=== PATIENT | female | born 1995 | race African-American/Black ===

== ENCOUNTER 2020-12-06 13:28 | Outpatient (REF) | payer OTHER, SELFPAY ==
[2020-12-07 12:53] LABS: CT PCR NOT DETECTED (Not Detect.); NG PCR NOT DETECTED (Not Detect.)
== END 2020-12-06 13:29 | disposition home or self-care (01) ==
LOC: HO.LAB 13:28
PROVIDERS: PCP Pediatrics; Visit Provider Advanced Practice Midwife
DX: Z01.419 Encounter for gynecological examination (general) (routine) without abnormal findings (principal); N92.6 Irregular menstruation, unspecified; L70.9 Acne, unspecified; Z20.2 Contact with and (suspected) exposure to infections with a predominantly sexual mode of transmission
CPT/HCPCS: 87491; 87591; 88142

== ENCOUNTER 2020-12-06 14:37 | Outpatient (REF) | payer OTHER, SELFPAY ==
[2020-12-07 09:46] LABS: Prolactin 6.8 ng/mL
[2020-12-09 19:16] LABS: DHEA Sulfate 293 mcg/dL (18-391)
[2020-12-11 11:21] LABS: Testosterone, Free 4.4 pg/mL (0.1-6.4); Testosterone, Total 64 ng/dL (2-45)
== END 2020-12-06 14:38 | disposition home or self-care (01) ==
LOC: HO.LAB 14:37
PROVIDERS: Visit Provider Advanced Practice Midwife
DX: Z01.419 Encounter for gynecological examination (general) (routine) without abnormal findings (principal); N92.6 Irregular menstruation, unspecified; L70.9 Acne, unspecified; Z20.2 Contact with and (suspected) exposure to infections with a predominantly sexual mode of transmission
CPT/HCPCS: 36415; 82627; 83498; 84146; 84402; 84403; 84443

== ENCOUNTER → 2020-12-19 09:05 | Outpatient (BNVA) | payer OTHER, SELFPAY | PROVIDERS: PCP Pediatrics; Visit Provider Advanced Practice Midwife ==

== ENCOUNTER 2021-01-29 08:41 | Emergency (ER) | payer OTHER, SELFPAY ==
[2021-01-29 09:07] VITALS: BP 107/57; PULSE 62; RESP 16; TEMP 36.6; O2SAT 100; BMI 19.9
--- NOTE | 2021-01-29 09:14 | ED_ITS ---
HPI - General Adult General Chief complaint: General Medical <MAGDA Rodriguez Last Filed: 01/29/21 09:22> Stated complaint: sore throat <MAGDA Rodriguez Last Filed: 01/29/21 09:22> Time Seen by Provider: 01/29/21 09:02 <MAGDA Rodriguez Last Filed: 01/29/21 09:22> Source: patient <MAGDA Rodriguez Last Filed: 01/29/21 09:22> Mode of arrival: ambulatory <MAGDA Rodriguez Last Filed: 01/29/21 09:22> History of Present Illness HPI narrative: 25-year-old female with a past medical history of irregular menses presenting to the ED complaining of sore throat, nasal congestion, dry cough, subjective fever, and mild chest discomfort when coughing since yesterday. Reports pain when swallowing. 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 Admits tested negative for COVID-19 a week ago. Denies ear pain, discharge, inability to swallow, difficulty swallowing, SOB, abdominal pain, LE edema, calf pain, recent travel <MAGDA Rodriguez Last Filed: 01/29/21 09:22> Onset (ago): day(s) <MAGDA Rodriguez Last Filed: 01/29/21 09:22> Related Data Home medications: Previous Rx's Medication Instructions Recorded metronidazole 500 mg tablet 2,000 mg PO ONCE 1 Days #4 tab 12/10/20 vitamin with calcium 1 tab PO DAILY #30 tab 12/19/20 no.72-iron 27 mg-folic acid 1 mg tablet <MAGDA Rodriguez Last Filed: 01/29/21 09:22> Allergies/adverse reactions: Allergies Allergy/AdvReac Type Severity Reaction Status Date / Time No Known Allergies Allergy Verified 12/19/20 09:06 <MAGDA Rodriguez Last Filed: 01/29/21 09:22> Review of Systems Review of Systems: Constitutional: + Fever, + Chills, No Night Sweats, No Fatigue, No Malaise ENT/Mouth: No Hearing loss, + Ear Pain, + Nasal Congestion, No Sinus Pain, No Hoarseness, + sore throat, + Rhinorrhea, No Swallowing Difficulty Eyes: No Eye Pain, No Vision Changes Cardiovascular: No Chest Pain, No SOB, No Edema, No Palpitations Respiratory: + Cough, No Sputum, No Wheezing, No Dyspnea Gastrointestinal: No Nausea, No Vomiting, No Abdominal pain Musculoskeletal: No joint pain, No Myalgias, No Joint Swelling Skin: No Skin Lesions, No rash <MAGDA Rodriguez - Last Filed: 01/29/21 09:22> Yes all other systems are reviewed and are negative <MAGDA Rodriguez - Last Filed: 01/29/21 09:22> [facility] Past Medical History Attestation statement: The following information was validated with the patient. <MAGDA Rodriguez - Last Filed: 01/29/21 09:22> Medical History: Medical History Elevated testosterone level in female <MAGDA Rodriguez - Last Filed: 01/29/21 09:22> Surgical History: Surgical History H/O inguinal hernia repair History of lumpectomy of right breast <MAGDA Rodriguez - Last Filed: 01/29/21 09:22> Social History Social History: Social History Alcohol intake: never Substance Use Type: Marijuana Sexual orientation: Straight/Heterosexual <MAGDA Rodriguez - Last Filed: 01/29/21 09:22> Physical Exam Vital Signs: Vital Signs: Last Vital Signs Temp 97.9 F 01/29/21 09:07 Pulse 62 01/29/21 09:07 Resp 16 01/29/21 09:07 BP 107/57 L 01/29/21 09:07 Pulse Ox 100 01/29/21 09:07 Body Mass Index 19.9 <MAGDA Rodriguez - Last Filed: 01/29/21 09:22> Vital Signs: Last Vital Signs Temp 97.9 F 01/29/21 09:07 Pulse 62 01/29/21 09:07 Resp 16 01/29/21 09:07 BP 107/57 L 01/29/21 09:07 Pulse Ox 100 01/29/21 09:07 Body Mass Index 19.9 <Dk Schreiber MD - Last Filed: 02/27/21 14:46> Const: General: cooperative, healthy appearing, comfortable and no acute distress <MAGDA Rodriguez - Last Filed: 01/29/21 09:22> Orientation/consciousness: patient oriented x3 <MAGDA Rodriguez - Last Filed: 01/29/21 09:22> Limitations: no limitations <MAGDA Rodriguez - Last Filed: 01/29/21 09:22> HENMT: Head: Yes normal to inspection <MAGDA Rodriguez - Last Filed: 01/29/21 09:22> Ears: hearing grossly normal bilaterally and TM's normal bilaterally <MAGDA Rodriguez - Last Filed: 01/29/21 09:22> General nose exam: Normal external nose present and Normal nares present <MAGDA Rodriguez - Last Filed: 01/29/21 09:22> Face and sinus: Yes normal facial exam <MAGDA Rodriguez - Last Filed: 01/29/21 09:22> Mouth: Normal oral and palatal mucosa present <MAGDA Rodriguez - Last Filed: 01/29/21 09:22> Throat: Yes posterior oropharynx normal, Yes tonsils normal, Yes uvula midline, No peritonsillar mass, Yes posterior oropharynx abnormal and No uvular edema <MAGDA Rodriguez - Last Filed: 01/29/21 09:22> Eyes: General: appearance normal, both eyes and all related structures <MAGDA Rodriguez - Last Filed: 01/29/21 09:22> EOM: EOMs intact bilaterally <MAGDA Rodriguez - Last Filed: 01/29/21 09:22> Neck: Neck: Yes normal visual inspection, Yes no meningeal signs, Yes supple and No anterior neck swelling <MAGDA Rodriguez - Last Filed: 01/29/21 09:22> Resp: Effort & Inspection: normal respiratory effort <MAGDA Rodriguez - Last Filed: 01/29/21 09:22> Auscultation: clear to auscultation bilaterally, no rales, no rhonchi and no wheezes <MAGDA Rodriguez - Last Filed: 01/29/21 09:22> Cardio: Rate: regular rate <MAGDA Rodriguez - Last Filed: 01/29/21 09:22> Heart sounds: S1 normal heart sound present and S2 normal heart sound present <MAGDA Rodriguez - Last Filed: 01/29/21 09:22> GI: Inspection: Yes normal to inspection <MAGDA Rodriguez - Last Filed: 01/29/21 09:22> Palpation (GI): Soft to palpation, nontender, no guarding and not rigid <MAGDA Rodriguez - Last Filed: 01/29/21 09:22> Skin: Rashes: no rashes <MAGDA Rodriguez - Last Filed: 01/29/21 09:22> Wounds: no wounds <MAGDA Rodriguez - Last Filed: 01/29/21 09:22> Neuro: General: patient oriented x3 and no meningeal signs <MAGDA Rodriguez - Last Filed: 01/29/21 09:22> Gait exam (Neuro): Normal gait present <MAGDA Rodriguez - Last Filed: 01/29/21 09:22> Extrem: General: Yes normal to inspection <MAGDA Rodriguez - Last Filed: 01/29/21 09:22> Course Course Course Narrative: I have reviewed the chart <Dk Schreiber MD - Last Filed: 02/27/21 14:46> Medical Decision Making MDM Narrative Medical decision making narrative: On exam VSS, NAD, well appearing, lungs CTA, oropharynx wnl, no evidence of tonsillar exudates/erythema. Concern for viral syndrome/COVID-19 vs viral pharyngitis. Exam not c/w strep pharyngitis Plan: Rapid strep, COVID-19 <MAGDA Rodriguez - Last Filed: 01/29/21 09:22> Lab Data Labs: Lab Results 01/29/21 Range/Units 09:18 Coronavirus (PCR) NEGATIVE (Negative) Influenza Type A (PCR) NEGATIVE (Negative) Influenza Type B (PCR) NEGATIVE (Negative) RSV RNA Qual (PCR) NEGATIVE (Negative) <MAGDA Rodriguez - Last Filed: 01/29/21 09:22> Lab Results 01/29/21 Range/Units 09:18 Coronavirus (PCR) NEGATIVE (Negative) Influenza Type A (PCR) NEGATIVE (Negative) Influenza Type B (PCR) NEGATIVE (Negative) RSV RNA Qual (PCR) NEGATIVE (Negative) <Dk Schreiber MD - Last Filed: 02/27/21 14:46> Discharge Plan Discharge Clinical Impression: Acute viral syndrome <MAGDA Rodriguez - Last Filed: 01/29/21 09:22> Patient Disposition: Home, Self-Care <MAGDA Rodriguez - Last Filed: 01/29/21 09:22> Instructions: Viral Syndrome (ED) <MAGDA Rodriguez - Last Filed: 01/29/21 09:22> Additional Instructions: Based on your symptoms and history we have sent a COVID-19. Although your RESULT IS PENDING at this time. RESULTS should return within a few hours. At this time you will be contacted with either NEGATIVE OR POSITIVE results. -Please wait until we contact you for your results. Please continue to follow cold instructions and wash your hands frequently. You may take Tylenol as directed on the bottle for pain or fever. CDC Guidelines for home isolation: - Stay away from others - WEAR A MASK if you are sick AND STAY HOME - Cover your mouth and nose with a tissue when you cough or sneeze. Dispose of tissues in a lined trash can and wash your hands immediately with soap and water for at least 20 seconds. If soap and water are not available, clean hands with alcohol-based hand product design specialist that contains at least 60% alcohol. - Clean your hands often with soap and water for at least 20 seconds - Avoid touching your eyes, nose and mouth with unwashed hands - Do not share dishes, drinking glasses, cups, eating utensils, towels, or bedding with other people in your home. After using these items, wash them thoroughly with soap and water or put in the packaging supervisor. - Clean high-touch surfaces in your isolation area ( sick room and bathroom) every day; let a caregiver clean and disinfect high-touch surfaces in other areas of the home. Clean the area or item with soap and water or another detergent if it is dirty. Then, use a household disinfectant. - Limit contact with pets and animals: If you must care for a pet, wash your hands before and after interacting with them) <MAGDA Rodriguez - Last Filed: 01/29/21 09:22> Prescriptions: No Action metronidazole [Flagyl] 500 mg tablet 2,000 mg PO ONCE 1 Days Qty: 4 RF: 0 Vitamin Plus Low Iron 27 mg iron- 1 mg tablet 1 tab PO DAILY Qty: 30 RF: 11 <MAGDA Rodriguez - Last Filed: 01/29/21 09:22> Referrals: Carl Gregorio MD [Primary Care Provider] - 2 days <MAGDA Rodriguez - Last Filed: 01/29/21 09:22> Stand Alone Forms: Work/School Release <MAGDA Rodriguez - Last Filed: 01/29/21 09:22> Interventions: ED Discharge Assessment Last Done: 01/29/21 09:28 <MAGDA Rodriguez - Last Filed: 01/29/21 09:22> Discharge Date/Time: 01/29/21 09:29 <MAGDA Rodriguez - Last Filed: 01/29/21 09:22>
[2021-01-29 11:12] LABS: Influenza A PCR NEGATIVE (Negative); Influenza B PCR NEGATIVE (Negative); Resp Syncy Virus RNA Qual PCR NEGATIVE (Negative); SARS COV2 PCR INHOUSE NEGATIVE (Negative)
== END 2021-01-29 09:29 | disposition home or self-care (01) ==
PROVIDERS: Physician Assistant; Emergency Provider Emergency Medicine; PCP Pediatrics
DX: J02.8 Acute pharyngitis due to other specified organisms (principal); B34.9 Viral infection, unspecified; F12.90 Cannabis use, unspecified, uncomplicated; Z20.822 Contact with and (suspected) exposure to COVID-19; Z79.899 Other long term (current) drug therapy
CPT/HCPCS: 0241U; 36415; 87071; 87880; 99283

== ENCOUNTER 2021-03-02 15:01 | Emergency (ER) | payer OTHER, SELFPAY ==
--- NOTE | ~2021-03-02 | XR_ITS ---
EXAMINATION: XR CHEST CLINICAL INFORMATION: Chest tightness COMPARISON: None TECHNIQUE: Frontal view of the chest was obtained. FINDINGS: No significant abnormality is noted involving the heart, lungs, mediastinum, bony thorax or soft tissues. XR/XR chest 1V IMPRESSION: Unremarkable chest examination.
[2021-03-02 15:26] VITALS: BP 102/67; PULSE 96; RESP 16; TEMP 36.9; O2SAT 96; BMI 20.9
--- NOTE | 2021-03-02 15:49 | ED.URI ---
HPI - URI/Sore Throat General Chief Complaint: Upper Respiratory Symptoms Stated Complaint: COUGH Time Seen by Provider: 03/02/21 15:39 Source: patient Mode of arrival: ambulatory Limitations: no limitations History of Present Illness HPI Narrative: 25-year-old female here with rhinorrhea, cough, chest tightness x3 days. Subjective fever 2 days ago. No chills. No shortness of breath, leg swelling or pain. No abdominal pain, vomiting or diarrhea. Patient is a [employer] at [employer]. She tells me she has not received a COVID vaccine. She did have a COVID test 2 days ago which was negative and she is here for an another test. Related Data Previous Rx's Medication Instructions Recorded metronidazole 500 mg tablet 2,000 mg PO ONCE 1 Days #4 tab 12/10/20 vitamin with calcium 1 tab PO DAILY #30 tab 12/19/20 no.72-iron 27 mg-folic acid 1 mg tablet Allergies Allergy/AdvReac Type Severity Reaction Status Date / Time No Known Allergies Allergy Verified 03/02/21 15:35 Review of Systems Review of Systems: Yes all other systems are reviewed and are negative Constitutional: Constitutional: Reports no additional constitutional complaints, Denies body ache(s), Denies chills, Denies fever(s), Denies headache(s) and Denies weakness Eyes: Eyes: Reports no additional eye complaints and Denies change in vision ENT: Reports system reviewed and no additional complaints, except as documented, Denies dizziness, Denies headache(s), Denies nasal congestion, Reports nasal discharge and Denies neck pain Cardiovascular: Cardiovascular: Reports no additional cardiovascular complaints, Reports chest pain, Denies leg edema and Denies dyspnea Respiratory: Respiratory: Reports no additional respiratory complaints, Reports cough and Denies dyspnea Gastrointestinal: Gastrointestinal: Reports no additional gastrointestinal complaints, Denies abdominal pain, Denies diarrhea, Denies nausea and Denies vomiting Genitourinary: Genitourinary: Reports no additional female genitourinary complaints and Denies urinary incontinence Musculoskeletal: Musculoskeletal: Reports no additional musculoskeletal complaints, Denies back pain, Denies arthralgias, Denies joint swelling, Denies neck pain, Denies numbness and Denies tingling Integumentary/Breasts: Skin/Breast: Reports system reviewed and no additional complaints, except as docu and Denies rash Neurologic: Denies Abnormal speech present, Denies dizziness, Denies headache(s), Denies numbness, Denies tingling and Denies weakness PMFSH Past Medical History Attestation statement: The following information was validated with the patient. Source: old records reviewed and nursing notes reviewed Medical History Elevated testosterone level in female Irregular menses Surgical History H/O inguinal hernia repair History of lumpectomy of right breast Social History Social History Alcohol intake: never Substance Use Type: Marijuana Advance Directives: No Advance Directives Information Provided: No Sexual orientation: Straight/Heterosexual Physical Exam Vital Signs: Vital Signs: Last Vital Signs Temp 98.4 F 03/02/21 15:26 Pulse 96 03/02/21 15:26 Resp 16 03/02/21 15:26 BP 102/67 03/02/21 15:26 Pulse Ox 96 03/02/21 15:26 Body Mass Index 20.9 Const: General: cooperative, healthy appearing, comfortable and no acute distress Orientation/consciousness: patient oriented x3 Limitations: no limitations HENMT: Head: Yes normal to inspection Ears: hearing grossly normal bilaterally General nose exam: Normal external nose present Face and sinus: Yes normal facial exam Mouth: Normal oral and palatal mucosa present Throat: Yes posterior oropharynx normal Eyes: General: appearance normal, both eyes and all related structures Pupils: Equal, round and reactive pupils present Neck: Neck: Yes normal visual inspection Chest: Chest palpation & inspection: normal inspection of the chest Resp: Effort & Inspection: normal respiratory effort Auscultation: clear to auscultation bilaterally Cardio: Rate: regular rate Rhythm: regular rhythm Peripheral pulses: Peripheral pulses 2+ throughout GI: Inspection: Yes normal to inspection Palpation (GI): Soft to palpation and nontender Auscultation: normal bowel sounds Back/Spine/Pelvis: Thoracic/Lumbar Spine: thoracic and lumbar spine normal to inspection Skin: General skin exam: no rashes or lesions noted Neuro: General: patient oriented x3, no focal motor deficits and normal sensation to monofilament Cranial nerves: Yes Equal, round and reactive pupils present Cognition (Neuro): normal cognition Speech: No Abnormal speech present Gait exam (Neuro): Normal gait present Motor exam (neuro): 5/5 motor strength present throughout Extrem: General: Yes normal to inspection Course Course Course Narrative: 25-year-old female here with URI symptoms x4 days. Tested negative for COVID 2 days ago. She is a [employer] and a Medical [employer]. Her exam is benign hemodynamically stable. Will pleura with clear lung sounds. Will check chest x-ray, COVID screen. 1600-chest x-ray shows no underlying infection. COVID screen negative. Likely viral syndrome. Reviewed worrisome signs and symptoms and when to return to the emergency department such as shortness of breath, chest pain, fever which does not respond to Motrin or Tylenol. Comfortable with discharge home MDM - URI/Sore Throat MDM Narrative Medical decision making narrative: Pneumonia Differential Diagnosis Differential diagnosis: Likely upper respiratory infection and viral infection Medical Records Attestation: I reviewed the patient's medical records. Lab Data Attestation: I reviewed the patient's lab results. Labs: Lab Results 03/02/21 Range/Units 15:42 COVID-19 ([facility]ES) Negative (Negative) COVID-19 Clin Com See Note Imaging Data Chest x-ray: Attestation: I personally reviewed and interpreted this imaging study as follows: Radiologist's impression: XAMINATION: XR CHEST CLINICAL INFORMATION: Chest tightness COMPARISON: None TECHNIQUE: Frontal view of the chest was obtained. FINDINGS: No significant abnormality is noted involving the heart, lungs, mediastinum, bony thorax or soft tissues. XR/XR chest 1V IMPRESSION: Unremarkable chest examination. Discharge Plan Discharge Clinical Impression: Viral infection Patient Disposition: Home, Self-Care Instructions: Viral Syndrome (ED) Additional Instructions: Your COVID test was negative Your chest x-ray shows no pneumonia Increase fluids, rest Motrin or Tylenol for pain or fever as needed Prescriptions: No Action metronidazole [Flagyl] 500 mg tablet 2,000 mg PO ONCE 1 Days Qty: 4 RF: 0 Vitamin Plus Low Iron 27 mg iron- 1 mg tablet 1 tab PO DAILY Qty: 30 RF: 11 Referrals: Carl Gregorio MD [Primary Care Provider] - 2 days Stand Alone Forms: Work/School Release
[2021-03-02 16:13] LABS: COVID-19 Test Negative (Negative)
== END 2021-03-02 16:46 | disposition home or self-care (01) ==
PROVIDERS: Nurse Practitioner Family; Emergency Provider Emergency Medicine Emergency Medical Services; PCP Pediatrics
DX: B34.9 Viral infection, unspecified (principal); Z20.822 Contact with and (suspected) exposure to COVID-19
CPT/HCPCS: 36415; 71045; 87635; 99283

== ENCOUNTER 2021-11-05 01:37 | Emergency (ER) | payer OTHER, SELFPAY ==
--- NOTE | 2021-11-05 | ECG_ITS ---
Test Reason : cough/sob Blood Pressure : / mmHG Vent. Rate : 074 BPM Atrial Rate : 074 BPM P-R Int : 110 ms QRS Dur : 070 ms QT Int : 360 ms P-R-T Axes : 056 071 045 degrees QTc Int : 399 ms Sinus rhythm with short AK Otherwise normal ECG No previous ECGs available Referred By: Generic ED Physician Electronically Signed By:Troy Cerrato
--- NOTE | ~2021-11-05 | XR_ITS ---
EXAMINATION: XR CHEST CLINICAL INFORMATION: Chest pain COMPARISON: 03/02/2021 TECHNIQUE: Frontal view of the chest was obtained. FINDINGS: The lungs are clear with no focal consolidation. No evidence of pneumothorax, pulmonary edema, or pleural effusions. The cardiomediastinal silhouette is unremarkable. No acute osseous findings. XR/XR chest 1V IMPRESSION: No acute cardiopulmonary findings.
[2021-11-05 01:40] VITALS: BP 116/77; PULSE 100; RESP 18; TEMP 36.9; O2SAT 97; BMI 22.1
[2021-11-05 01:58] LABS: Basophils Percent Auto 0.4 % (0-2); Eosinophils Absolute Auto 0.4 X10*3/uL (0.0-0.4); Eosinophils Percent Auto 4.2 % (0-4); Hematocrit 34.6 % (37.0-47.0); Hemoglobin 11.9 g/dl (12.0-16.0); Imm Gran Abs Auto 0.02 X10*3/uL (0.00-0.03); Imm Gran Pct Auto 0.2 % (0.0-0.4); Lymphocytes Absolute Auto 3.2 X10*3/uL (1.2-4.9); Lymphocytes Percent Auto 35.7 % (20-40); MANUAL DIFF FLAG NO; Mean Corpuscular HGB Conc 34.4 g/dl (31.0-35.0); Mean Corpuscular Hemoglobin 32.4 pg (27.0-33.0); Mean Corpuscular Volume 94.3 fL (80.0-98.0); Mean Platelet Volume 9.4 fL (9.4-12.3); Monocytes Absolute Auto 0.7 X10*3/uL (0.1-1.2); Monocytes Percent Auto 8.1 % (2-11); Neutrophils Absolute Auto 4.7 x10*3/uL (2.0-8.3); Neutrophils Percent Auto 51.4 % (45-73); Platelet Count 254 X10*3/uL (160-400); Red Blood Count 3.67 X10*6/uL (4.20-5.50); Red Cell Distribution Width 11.6 % (11.0-16.0); White Blood Count 9.1 X10*3/uL (4.8-10.8)
[2021-11-05 02:10] LABS: COVID-19 Test Negative (Negative)
[2021-11-05 02:28] LABS: Anion Gap 13 (12-20); Blood Urea Nitrogen 10 mg/dL (9-16); Calcium 9.1 mg/dL (8.4-10.2); Carbon Dioxide 21 mmol/L (22-29); Chloride 110 mmol/L (96-108); Creatinine Clr Calc Pharmacy 124.2; Estimated Glomerular Filt Rate > 60; Glucose Random 113 mg/dL (60-115); Potassium 3.7 mmol/L (3.3-5.1); Sodium 140 mmol/L (135-145)
== END 2021-11-05 04:26 | disposition left against medical advice (07) ==
PROVIDERS: Emergency Provider Emergency Medicine
DX: R07.9 Chest pain, unspecified (principal); R05.9 Cough, unspecified; Z20.822 Contact with and (suspected) exposure to COVID-19; R51.9 Headache, unspecified
CPT/HCPCS: 36415; 71045; 80048; 85025; 87635; 93005; 99283

== ENCOUNTER 2022-05-15 05:14 | Emergency (ER) | payer SELFPAY ==
--- NOTE | ~2022-05-15 | XR_ITS ---
EXAMINATION: XR CHEST CLINICAL INFORMATION: Cough COMPARISON: 11/05/2021 TECHNIQUE: Frontal view of the chest was obtained. FINDINGS: The lungs are well expanded. There is no focal consolidation, edema, or effusion. No pneumothorax. The cardiomediastinal silhouette is within normal limits. No acute osseous abnormality. XR/XR chest 1V IMPRESSION: Clear lungs.
[2022-05-15 05:21] VITALS: BP 112/78; PULSE 64; RESP 20; TEMP 37; O2SAT 98; BMI 23.6
[2022-05-15 05:55] LABS: COVID-19 Test Negative (Negative); IDNOW Serial# 16C4AD1C
[2022-05-15 06:37] VITALS: BP 93/53; PULSE 68; RESP 16; O2SAT 98
--- NOTE | 2022-05-15 07:16 | ED.GENADULT ---
HPI - General Adult General Chief complaint: Upper Respiratory Symptoms Stated complaint: not feeling well Time Seen by Provider: 05/15/22 07:13 Source: patient Mode of arrival: ambulatory History of Present Illness HPI narrative: 27-year-old female who recent return from [place] is now reporting that she has had fevers at home, headache, nausea and vomiting as well as body aches. She has not taken any COVID-19 testing. Related Data Previous Rx's Medication Instructions Recorded metronidazole 500 mg tablet 2,000 mg PO ONCE 1 day #4 tabs 12/10/20 (Flagyl) vitamin with calcium 1 tab PO DAILY #30 tabs 12/19/20 no.72-iron 27 mg-folic acid 1 mg tablet ( Vitamins Plus Low Iron) Allergies Allergy/AdvReac Type Severity Reaction Status Date / Time No Known Allergies Allergy Verified 05/15/22 05:24 Review of Systems Review of Systems: Pertinent positives and negatives as stated in HPI 10 point review of systems is otherwise negative. PMFSH Past Medical History Source: nursing notes reviewed Medical History Elevated testosterone level in female Irregular menses Surgical History H/O inguinal hernia repair History of lumpectomy of right breast Social History Social History Alcohol intake: never Substance Use Type: Marijuana Advance Directives: No Sexual orientation: Straight/Heterosexual Physical Exam ED Vital Signs: Vital Signs - 24 hr 05/15/22 05:21 05/15/22 06:37 Temperature 98.6 F Pulse Rate 64 68 Respiratory Rate 20 16 Blood Pressure 112/78 93/53 L Pulse Oximetry 98 98 Oxygen Delivery Method Room Air Room Air BMI result Body Mass Index 23.6 VITAL SIGNS: Reviewed. GENERAL: Well developed, well nourished, in no acute distress. HEAD: Normocephalic/atraumatic EYES: PERRLA, EOMI EARS: Ext canals without abnormality, TMs non-bulging and non-erythematous NOSE: Nares patent bilateral OROPHARYNX: no oral lesions noted, posterior pharynx clear and non-erythematous without noted tonsillar enlargement/erythema/exudates NECK: Supple, no adenopathy LUNGS: Normal breath sounds. No adventitious sounds or accessory muscle use. SpO2<98> CARDIOVASCULAR: Regular rate and rhythm without noted murmurs ABDOMEN: Soft, non-tender, non-distended with bowel sounds. NEUROLOGIC: Alert and oriented x 4. Course Course Course Narrative: 27-year-old female with history and clinical presentation consistent with viral syndrome and on review of x-ray and COVID-19 testing they are both negative, patient has oxygenating well at room temperature without tachypnea, resting comfortably, she is not tachycardic, and has had no episodes of nausea vomiting since arrival to the emergency room. Review of all investigations negative for obvious evidence of UTI and patient had no urinary complaints. She is otherwise discharged home with instructions to continue testing for COVID-19. Medical Decision Making Lab Data Labs: Lab Results 05/15/22 05/15/22 05/15/22 Range/Units 05:33 07:24 07:24 Urine Color Yellow Urine Appearance Hazy Urine pH 6.0 (5.0-8.0) Ur Specific [place] >= 1.030 H (1.005-1.025) Urine Protein Negative (Neg-Trace) mg/dL Urine Glucose (UA) Negative (Negative) mg/dL Urine Ketones Negative (Negative) mg/dL Urine Blood Moderate (2+) H (Negative) Urine Nitrite Negative (Negative) Ur Leukocyte Esterase Trace H (Negative) Urine RBC 0-2 (0-2) /HPF Urine WBC 11-20 H (0-5) /HPF Ur Squamous Epith Cells 6-10 (0-2) /HPF Urine Bacteria Trace (None Seen) Hyaline Casts 0-2 (0-2) /LPF Urine Test NEGATIVE (NEGATIVE) COVID-19 ([facility]) Negative (Negative) COVID-19 Clin Com See Note Discharge Plan Discharge Clinical Impression: Viral syndrome Patient Disposition: Home, Self-Care Instructions: Viral Syndrome (ED) Additional Instructions: 1. Recommend [id number] cough suppressant as well as using [id number] Tylenol/ibuprofen as needed for headaches, body aches, temperatures greater than 100.4. 2. Recommend that you continue to use [id number] home test for COVID-19. 3. Follow-up with your primary care provider by calling the office this morning and setting up an appointment for re-evaluation. Return to the ER for worsening symptoms. Prescriptions: No Action metronidazole [Flagyl] 500 mg tablet 2,000 mg PO ONCE 1 Days Qty: 4 0RF Vitamin Plus Low Iron 27 mg iron- 1 mg tablet 1 tab PO DAILY Qty: 30 11RF Stand Alone Forms: Work/School Release
[2022-05-15 07:30] LABS: Appearance Urine Hazy; Color Urine Yellow; Glucose Urine UA Negative (Negative); Leukocyte Esterase Urine Trace (Negative); Nitrite Urine Negative (Negative); Specific Gravity - Urine >= 1.030 (1.005-1.025); Urine Blood Moderate (2+) (Negative); Urine Ketones Negative (Negative); Urine Protein Negative (Neg-Trace)
[2022-05-15 07:32] LABS: UPreg QC Valid YES; Urine Pregnancy NEGATIVE (NEGATIVE)
[2022-05-15 07:38] LABS: UACC Culture Trigger YES
[2022-05-15 07:39] LABS: Bacteria Urine Trace (None Seen); Hyaline Casts Urine 0-2 /LPF (0-2); RBC Urine 0-2 /HPF (0-2)
[2022-05-15 08:17] VITALS: BP 103/68; PULSE 78
== END 2022-05-15 08:18 | disposition home or self-care (01) ==
PROVIDERS: Emergency Provider Student in an Organized Health Care Education/Training Program
DX: B34.9 Viral infection, unspecified (principal); R05.9 Cough, unspecified; Z20.822 Contact with and (suspected) exposure to COVID-19; Z79.899 Other long term (current) drug therapy
CPT/HCPCS: 71045; 81001; 81025; 87086; 87635; 99283

== ENCOUNTER 2023-03-22 04:23 | Emergency (ER) | payer SELFPAY ==
[2023-03-22 04:27] VITALS: BP 114/79; PULSE 74; RESP 12; TEMP 36.4; O2SAT 99; BMI 23.6
--- NOTE | 2023-03-22 04:32 | ECG_ITS ---
Test Reason : CHEST PAIN Blood Pressure : / mmHG Vent. Rate : 079 BPM Atrial Rate : 079 BPM P-R Int : 134 ms QRS Dur : 070 ms QT Int : 358 ms P-R-T Axes : 056 059 039 degrees QTc Int : 410 ms Normal sinus rhythm Normal ECG When compared with ECG of 05-NOV-2021 01:50, No significant change was found Referred By: Generic ED Physician Electronically Signed By:VICTORINA GARNICA
[2023-03-22 04:54] LABS: Basophils Percent Auto 0.5 % (0-2); Eosinophils Absolute Auto 0.1 X10*3/uL (0.0-0.4); Eosinophils Percent Auto 1.3 % (0-4); Hematocrit 38.8 % (37.0-47.0); Hemoglobin 13.2 g/dl (12.0-16.0); Imm Gran Abs Auto 0.02 X10*3/uL (0.00-0.03); Imm Gran Pct Auto 0.2 % (0.0-0.4); Lymphocytes Absolute Auto 2.9 X10*3/uL (1.2-4.9); Lymphocytes Percent Auto 33.1 % (20-40); MANUAL DIFF FLAG NO; Mean Corpuscular Hemoglobin 32.7 pg (27.0-33.0); Mean Platelet Volume 9.2 fL (9.4-12.3); Monocytes Absolute Auto 0.7 X10*3/uL (0.1-1.2); Monocytes Percent Auto 8.4 % (2-11); Neutrophils Absolute Auto 4.9 x10*3/uL (2.0-8.3); Neutrophils Percent Auto 56.5 % (45-73); Platelet Count 236 X10*3/uL (160-400); Red Blood Count 4.04 X10*6/uL (4.20-5.50); Red Cell Distribution Width 12.2 % (11.0-16.0); White Blood Count 8.7 X10*3/uL (4.8-10.8)
[2023-03-22 05:11] LABS: Alanine Aminotransferase 9 U/L (0-31); Alkaline Phosphatase 36 U/L (39-117); Anion Gap 11 (12-20); Aspartate Amino Transferase 15 U/L (5-31); Bilirubin Total 0.2 mg/dL (0.0-1.0); Blood Urea Nitrogen 12 mg/dL (9-16); Calcium 9.4 mg/dL (8.4-10.2); Carbon Dioxide 23 mmol/L (22-29); Chloride 110 mmol/L (96-108); Creatinine Clr Calc Pharmacy 118.2; Estimated Glomerular Filt Rate > 60; Glucose Random 102 mg/dL (60-115); Potassium 4.1 mmol/L (3.3-5.1); Sodium 140 mmol/L (135-145); Total Protein 6.5 g/dL (6.5-8.0)
[2023-03-22 05:15] LABS: Troponin-I High Sensitivity < 2.7 ng/L (<3.5-17.0)
--- NOTE | 2023-03-22 05:54 | PC.NURSE ---
Patient reports poor oral fod and fluid intake x4 days. Reports chest pain, nausea, vomiting, and diarrhea: 2 episodes of vomiting, and 2 episodes of diarrhea within the last 24 hours. Patient also c/o sore throat and mostly dry cough with occasional thick phlegm. 20 G IV line established in R AC. Call parra placed within patient's reach. Patient is awaiting to be seen by ED provider.
[2023-03-22 06:33] LABS: Influenza A PCR NEGATIVE (Negative); Influenza B PCR NEGATIVE (Negative); Resp Syncy Virus RNA Qual PCR NEGATIVE (Negative); SARS COV2 PCR INHOUSE NEGATIVE (Negative)
--- NOTE | 2023-03-22 06:35 | ED_ITS ---
HPI - General Adult General Chief complaint: General Medical Stated complaint: unable to eat/drink Time Seen by Provider: 03/22/23 06:32 Source: patient, RN notes reviewed and old records reviewed Mode of arrival: ambulatory History of Present Illness HPI narrative: 27-year-old female with no significant past medical history presenting to the ED complaining of upper abdominal pain, nonbloody emesis, and nonbloody loose/watery diarrhea x4 days. Reports about 2-3 episodes of each daily with decreased p.o. intake. Also reports THC use, last used prior to symptoms starting. Denies recent antibiotic use, recent travel, suspicious food intake or sick contacts. Denies fever/chills, constipation, dark stools, dysuria/hematuria Onset (ago): day(s) Related Data Previous Rx's Medication Instructions Recorded metronidazole 500 mg tablet 2,000 mg PO ONCE 1 day #4 tabs 12/10/20 (Flagyl) vitamin with calcium 1 tab PO DAILY #30 tabs 12/19/20 no.72-iron 27 mg-folic acid 1 mg tablet ( Vitamins Plus Low Iron) cefuroxime axetil 250 mg tablet 250 mg PO BID 7 days #14 tabs 03/22/23 ondansetron 4 mg disintegrating 4 mg PO Q8H PRN nausea and 03/22/23 tablet vomiting #10 tabs Allergies Allergy/AdvReac Type Severity Reaction Status Date / Time No Known Allergies Allergy Verified 03/22/23 04:26 Review of Systems Review of Systems: Constitutional: No Fever, No Chills, No Fatigue, No Malaise ENT/Mouth: No Hearing loss, No Ear Pain, No Nasal Congestion, No sore throat, No Rhinorrhea, No Swallowing Difficulty Eyes: No Eye Pain, No Swelling, No Redness, No Vision Changes Cardiovascular: No Chest Pain, No SOB Respiratory: No Cough, No Sputum, No Dyspnea Gastrointestinal: + Nausea, + Vomiting, + Diarrhea, No Constipation, + Abdominal pain, No Hematochezia, No Melena Genitourinary: No Dysuria, No Urinary Frequency, No Hematuria, No Urinary Incontinence/retention, No Flank Pain Musculoskeletal: No joint pain, No Myalgias, No Joint Swelling Skin: No Skin Lesions, No rash Neuro: No Weakness, No Headache Yes all other systems are reviewed and are negative Constitutional: Constitutional: Reports as per HPI [facility] Past Medical History Attestation statement: The following information was validated with the patient. Source: old records reviewed Medical History Elevated testosterone level in female Irregular menses Surgical History H/O inguinal hernia repair History of lumpectomy of right breast Social History Social History Alcohol intake: current Alcohol intake frequency: holidays/special occasions only Smoked in Last 30 Days: No Use of substances other than those prescribed or required for medical reasons: Yes Substance Use Type: Marijuana Advance Directives: No Patient : No Sexual orientation: Straight/Heterosexual Physical Exam ED Vital Signs: Vital Signs - 24 hr 03/22/23 04:27 03/22/23 07:08 03/22/23 07:14 Temperature 97.5 F 97.8 F Pulse Rate 74 72 83 Respiratory Rate 12 12 18 Blood Pressure 114/79 108/70 108/70 Pulse Oximetry 99 99 98 Oxygen Delivery Method Room Air Room Air Room Air BMI result Body Mass Index 23.6 Const General: cooperative, healthy appearing and no acute distress Orientation/consciousness: patient oriented x3 Limitations: no limitations HENMT Head: Yes normal to inspection and Yes atraumatic Ears: hearing grossly normal bilaterally General nose exam: Normal external nose present Face and sinus: Yes normal facial exam Eyes General: appearance normal, both eyes and all related structures EOM: EOMs intact bilaterally Neck Neck: Yes normal visual inspection and Yes no meningeal signs Resp Effort & Inspection: normal respiratory effort and no respiratory distress Auscultation: clear to auscultation bilaterally Cardio Rate: regular rate Heart sounds: S1 normal heart sound present and S2 normal heart sound present GI Inspection: Yes normal to inspection Palpation (GI): Soft to palpation, nontender, no guarding and not rigid General: Yes no CVA tenderness Back/Spine/Pelvis Back: no CVA tenderness Skin Rashes: no rashes Wounds: no wounds Neuro General: patient oriented x3, tone normal and no meningeal signs Gait exam (Neuro): Normal gait present Extrem General: Yes normal to inspection Course Course Course Narrative: -7031--no leukocytosis. Labs otherwise reassuring -COVID/ flu/RSV negative -0759--UA infected. negative > patient given p.o. Ceftin. Tox screen positive for THC >0830--patient is tolerating p.o. in the ED, reports symptomatic improvement, feels safe for discharge, this time Results discussed with patient including worrisome signs and symptoms and strict return precautions, and when to return to the emergency department. They verbalized understanding and feel safe for discharge at this time. Medications Administered Discontinued Medications Generic Name Dose Route Start Last Admin Trade Name Freq PRN Reason Stop Dose Admin Cefuroxime Axetil 250 mg 03/22/23 08:02 03/22/23 08:13 Cefuroxime Axetil 250 Mg Tablet PO 03/22/23 08:03 250 mg ONCE ONE Administration Sodium Chloride 1,000 mls @ 999 mls/hr 03/22/23 06:45 03/22/23 08:14 Ns IV 03/22/23 07:45 Infused .Q1H1M MONA Infusion Ondansetron HCl 4 mg 03/22/23 06:51 03/22/23 07:13 Ondansetron Hcl 4 Mg/2 Ml Vial IVPUSH 03/22/23 06:52 4 mg ONCE ONE Administration Medical Decision Making Medical Decision Making MDM Narrative: 27-year-old female with no significant past medical history presenting to the ED complaining of upper abdominal pain, nonbloody emesis, and nonbloody loose/watery diarrhea x4 days. On exam vital signs stable, NAD, nontoxic appearing, abdomen soft/nontender, no rebound or guarding. Concern for gastroenteritis vs food poisoning vs GERD/gastritis vs cyclical vomiting. Lower suspicion for pancreatitis/cholecystitis/lithiasis, appendicitis or diverticulitis. Plan: Labs, UA, IVF antiemetics, stool studies, p.o. challenge Please refer to course for remaining clinical decision making, interpretation of labs/imaging results, and discussions with consultants and/or family members. Differential Diagnosis Differential Diagnoses: The differential diagnosis associated with the presentation includes As above Lab Data [facility] Lab Attestation statement: I reviewed the patient's lab results. 03/22/23 04:48 03/22/23 04:48 Labs: Lab Results 03/22/23 03/22/23 03/22/23 Range/Units 04:48 04:48 04:48 WBC 8.7 (4.8-10.8) X10*3/uL RBC 4.04 L (4.20-5.50) X10*6/uL Hgb 13.2 (12.0-16.0) g/dl Hct 38.8 (37.0-47.0) % MCV 96.0 (80.0-98.0) fL MCH 32.7 (27.0-33.0) pg MCHC 34.0 (31.0-35.0) g/dl RDW 12.2 (11.0-16.0) % Plt Count 236 (160-400) X10*3/uL MPV 9.2 L (9.4-12.3) fL Immature Gran % (Auto) 0.2 (0.0-0.4) % Neut % (Auto) 56.5 (45-73) % Lymph % (Auto) 33.1 (20-40) % Gove % (Auto) 8.4 (2-11) % Eos % (Auto) 1.3 (0-4) % Baso % (Auto) 0.5 (0-2) % Lymph # (Auto) 2.9 (1.2-4.9) X10*3/uL Gove # (Auto) 0.7 (0.1-1.2) X10*3/uL Eos # (Auto) 0.1 (0.0-0.4) X10*3/uL Baso # (Auto) 0.0 (0.0-0.2) X10*3/uL Abs Immat Gran (auto) 0.02 (0.00-0.03) X10*3/uL Absolute Neuts (auto) 4.9 (2.0-8.3) x10*3/uL Absolute Nucleated RBC 0.000 (0.0-0.012) X10*3/uL Nucleated RBC % (auto) 0.0 (0.0-0.2) /100WBC Sodium 140 (135-145) mmol/L Potassium 4.1 (3.3-5.1) mmol/L Chloride 110 H (96-108) mmol/L Carbon Dioxide 23 (22-29) mmol/L Anion Gap 11 L (12-20) BUN 12 (9-16) mg/dL Creatinine 0.76 (0.5-1.4) mg/dL Estim Creat Clear Calc 118.2 Estimated GFR > 60 Random Glucose 102 (60-115) mg/dL Calcium 9.4 (8.4-10.2) mg/dL Magnesium 2.0 (1.6-2.6) mg/dL Total Bilirubin 0.2 (0.0-1.0) mg/dL AST 15 (5-31) U/L ALT 9 (0-31) U/L Alkaline Phosphatase 36 L (39-117) U/L Troponin I High Sens < 2.7 (<3.5-17.0) ng/L Total Protein 6.5 (6.5-8.0) g/dL Albumin 4.0 (3.5-5.0) g/dL Lipase 18 (8-78) U/L Beta HCG, Quant mIU/mL Urine Color Urine Appearance Urine pH (5.0-9.0) Ur Specific [place] (1.005-1.025) Urine Protein (Neg-Trace) mg/dL Urine Glucose (UA) (Negative) mg/dL Urine Ketones (Negative) mg/dL Urine Blood (Negative) Urine Nitrite (Negative) Ur Leukocyte Esterase (Negative) Urine RBC (0-2) /HPF Urine WBC (0-5) /HPF Ur Squamous Epith Cells (0-2) /HPF Urine Bacteria (None Seen) Hyaline Casts (0-2) /LPF Urine Test (NEGATIVE) Urine Opiates Screen (Not Detect) Urine Fentanyl Screen (Not Detect) Ur Barbiturates Screen (Not Detect) Ur Phencyclidine Scrn (Not Detect) Ur Amphetamines Screen (Not Detect) U Benzodiazepines Scrn (Not Detect) Urine Cocaine Screen (Not Detect) U Marijuana (THC) Screen (Not Detect) Influenza Type A (PCR) (Negative) Influenza Type B (PCR) (Negative) RSV RNA Qual (PCR) (Negative) SARS-CoV-2 RNA (RT-PCR) (Negative) 03/22/23 03/22/23 03/22/23 Range/Units 05:52 07:17 07:18 WBC (4.8-10.8) X10*3/uL RBC (4.20-5.50) X10*6/uL Hgb (12.0-16.0) g/dl Hct (37.0-47.0) % MCV (80.0-98.0) fL MCH (27.0-33.0) pg MCHC (31.0-35.0) g/dl RDW (11.0-16.0) % Plt Count (160-400) X10*3/uL MPV (9.4-12.3) fL Immature Gran % (Auto) (0.0-0.4) % Neut % (Auto) (45-73) % Lymph % (Auto) (20-40) % Gove % (Auto) (2-11) % Eos % (Auto) (0-4) % Baso % (Auto) (0-2) % Lymph # (Auto) (1.2-4.9) X10*3/uL [place]ove # (Auto) (0.1-1.2) X10*3/uL Eos # (Auto) (0.0-0.4) X10*3/uL Baso # (Auto) (0.0-0.2) X10*3/uL Abs Immat Gran (auto) (0.00-0.03) X10*3/uL Absolute Neuts (auto) (2.0-8.3) x10*3/uL Absolute Nucleated RBC (0.0-0.012) X10*3/uL Nucleated RBC % (auto) (0.0-0.2) /100WBC Sodium (135-145) mmol/L Potassium (3.3-5.1) mmol/L Chloride (96-108) mmol/L Carbon Dioxide (22-29) mmol/L Anion Gap (12-20) BUN (9-16) mg/dL Creatinine (0.5-1.4) mg/dL Estim Creat Clear Calc Estimated GFR Random Glucose (60-115) mg/dL Calcium (8.4-10.2) mg/dL Magnesium (1.6-2.6) mg/dL Total Bilirubin (0.0-1.0) mg/dL AST (5-31) U/L ALT (0-31) U/L Alkaline Phosphatase (39-117) U/L Troponin I High Sens (<3.5-17.0) ng/L Total Protein (6.5-8.0) g/dL Albumin (3.5-5.0) g/dL Lipase (8-78) U/L Beta HCG, Quant < 2 mIU/mL Urine Color Urine Appearance Urine pH (5.0-9.0) Ur Specific [place] (1.005-1.025) Urine Protein (Neg-Trace) mg/dL Urine Glucose (UA) (Negative) mg/dL Urine Ketones (Negative) mg/dL Urine Blood (Negative) Urine Nitrite (Negative) Ur Leukocyte Esterase (Negative) Urine RBC (0-2) /HPF Urine WBC (0-5) /HPF Ur Squamous Epith Cells (0-2) /HPF Urine Bacteria (None Seen) Hyaline Casts (0-2) /LPF Urine Test NEGATIVE (NEGATIVE) Urine Opiates Screen (Not Detect) Urine Fentanyl Screen (Not Detect) Ur Barbiturates Screen (Not Detect) Ur Phencyclidine Scrn (Not Detect) Ur Amphetamines Screen (Not Detect) U Benzodiazepines Scrn (Not Detect) Urine Cocaine Screen (Not Detect) U Marijuana (THC) Screen (Not Detect) Influenza Type A (PCR) NEGATIVE (Negative) Influenza Type B (PCR) NEGATIVE (Negative) RSV RNA Qual (PCR) NEGATIVE (Negative) SARS-CoV-2 RNA (RT-PCR) NEGATIVE (Negative) 03/22/23 03/22/23 Range/Units 07:18 07:18 WBC (4.8-10.8) X10*3/uL RBC (4.20-5.50) X10*6/uL Hgb (12.0-16.0) g/dl Hct (37.0-47.0) % MCV (80.0-98.0) fL MCH (27.0-33.0) pg MCHC (31.0-35.0) g/dl RDW (11.0-16.0) % Plt Count (160-400) X10*3/uL MPV (9.4-12.3) fL Immature Gran % (Auto) (0.0-0.4) % Neut % (Auto) (45-73) % Lymph % (Auto) (20-40) % Gove % (Auto) (2-11) % Eos % (Auto) (0-4) % Baso % (Auto) (0-2) % Lymph # (Auto) (1.2-4.9) X10*3/uL Gove # (Auto) (0.1-1.2) X10*3/uL Eos # (Auto) (0.0-0.4) X10*3/uL Baso # (Auto) (0.0-0.2) X10*3/uL Abs Immat Gran (auto) (0.00-0.03) X10*3/uL Absolute Neuts (auto) (2.0-8.3) x10*3/uL Absolute Nucleated RBC (0.0-0.012) X10*3/uL Nucleated RBC % (auto) (0.0-0.2) /100WBC Sodium (135-145) mmol/L Potassium (3.3-5.1) mmol/L Chloride (96-108) mmol/L Carbon Dioxide (22-29) mmol/L Anion Gap (12-20) BUN (9-16) mg/dL Creatinine (0.5-1.4) mg/dL Estim Creat Clear Calc Estimated GFR Random Glucose (60-115) mg/dL Calcium (8.4-10.2) mg/dL Magnesium (1.6-2.6) mg/dL Total Bilirubin (0.0-1.0) mg/dL AST (5-31) U/L ALT (0-31) U/L Alkaline Phosphatase (39-117) U/L Troponin I High Sens (<3.5-17.0) ng/L Total Protein (6.5-8.0) g/dL Albumin (3.5-5.0) g/dL Lipase (8-78) U/L Beta HCG, Quant mIU/mL Urine Color Yellow Urine Appearance Clear Urine pH 7.0 (5.0-9.0) Ur Specific [place] 1.020 (1.005-1.025) Urine Protein Negative (Neg-Trace) mg/dL Urine Glucose (UA) Negative (Negative) mg/dL Urine Ketones Negative (Negative) mg/dL Urine Blood Small (1+) H (Negative) Urine Nitrite Negative (Negative) Ur Leukocyte Esterase Large (3+) H (Negative) Urine RBC 6-10 H (0-2) /HPF Urine WBC 11-20 H (0-5) /HPF Ur Squamous Epith Cells 3-5 (0-2) /HPF Urine Bacteria None Seen (None Seen) Hyaline Casts 0-2 (0-2) /LPF Urine Test (NEGATIVE) Urine Opiates Screen Not Detected (Not Detect) Urine Fentanyl Screen Not Detected (Not Detect) Ur Barbiturates Screen Not Detected (Not Detect) Ur Phencyclidine Scrn Not Detected (Not Detect) Ur Amphetamines Screen Not Detected (Not Detect) U Benzodiazepines Scrn Not Detected (Not Detect) Urine Cocaine Screen Not Detected (Not Detect) U Marijuana (THC) Screen POSITIVE H (Not Detect) Influenza Type A (PCR) (Negative) Influenza Type B (PCR) (Negative) RSV RNA Qual (PCR) (Negative) SARS-CoV-2 RNA (RT-PCR) (Negative) External Record Review External record reviewed: Inpatient record, Office record, Outpatient record, Prior outpatient labs, Prior outpatient radiology, Primary care record and Outside ED record Tests considered The following testing was considered but not selected: As above Prescription Management I considered prescription management with: Pain Medication, Antiviral and Antibiotic Not needed at this time Social Determinants Patient?s care significantly limited by Social Determinants of Health including: Alcoholism and drug addiction in family Discharge Plan Discharge Clinical Impression: UTI (urinary tract infection), Gastroenteritis Patient Disposition: Home, Self-Care Instructions: Urinary Tract Infection in Women (DC), Gastroenteritis (DC) Additional Instructions: Your blood work is reassuring. You do have a urine infection, stepped in is an antibiotic please take as prescribed Zofran as an antinausea medication please take as needed avoid THC use please follow up with your doctor if symptoms persist or worsen, you are unable to eat or drink have persistent nausea/vomiting return to the ED Prescriptions: New cefuroxime axetil 250 mg tablet 250 mg PO BID 7 Days Qty: 14 0RF ondansetron 4 mg tablet,disintegrating 4 mg PO Q8H PRN (Reason: nausea and vomiting) Qty: 10 0RF No Action metronidazole [Flagyl] 500 mg tablet 2,000 mg PO ONCE 1 Days Qty: 4 0RF Vitamin Plus Low Iron 27 mg iron- 1 mg tablet 1 tab PO DAILY Qty: 30 11RF Referrals: Carl Gregorio MD [Primary Care Provider] - Stand Alone Forms: Work/School Release Interventions: ED Discharge Assessment Last Done: 03/22/23 08:47 Discharge Date/Time: 03/22/23 08:48
[2023-03-22 06:51] LABS: Lipase 18 U/L (8-78)
[2023-03-22] MEDS: 0.9 % Sodium Chloride 1,000 ML 999 ML IV (06:51)
[2023-03-22 07:08] VITALS: BP 108/70; PULSE 72; RESP 12; TEMP 36.6; O2SAT 99
[2023-03-22] MEDS: ondansetron HCL 4 MG/2 ML VIAL IVPUSH (07:13)
[2023-03-22 07:14] VITALS: BP 108/70; PULSE 83; RESP 18; O2SAT 98
--- NOTE | 2023-03-22 07:15 | PC.NURSE ---
Alert and oriented. Denies pain, sob, or dizziness. States continues to feel nauseous but denies diarrhea or vomiting at this time. Fluids running per order, medicated with zofran per order. VSS.
[2023-03-22 07:40] LABS: Appearance Urine Clear; Color Urine Yellow; Glucose Urine UA Negative (Negative); Leukocyte Esterase Urine Large (3+) (Negative); Nitrite Urine Negative (Negative); UMIC TRIGGER UACC YES; UPreg QC Valid YES; Urine Blood Small (1+) (Negative); Urine Ketones Negative (Negative); Urine Pregnancy NEGATIVE (NEGATIVE); Urine Protein Negative (Neg-Trace)
[2023-03-22 07:41] LABS: Amphetamine Screen Urine Not Detected (Not Detect); Barbiturates, Urine Not Detected (Not Detect); Benzodiazepines Screen Urine Not Detected (Not Detect); Cannabinoid Screen Urine POSITIVE (Not Detect); Cocaine Screen Urine Not Detected (Not Detect); Fentanyl, urine Not Detected (Not Detect); Opiate Screen Urine Not Detected (Not Detect); Phencyclidine Screen Urine Not Detected (Not Detect)
[2023-03-22 07:44] LABS: Bacteria Urine None Seen (None Seen); Hyaline Casts Urine 0-2 /LPF (0-2); UACC Culture Trigger YES
[2023-03-22 08:07] LABS: HCG Quantitative < 2 mIU/mL
--- NOTE | 2023-03-22 08:14 | PC.NURSE ---
Reports zofran helped improve nausea.
--- NOTE | 2023-03-22 08:47 | PC.NURSE ---
Reviewed discharge plan with patient who verbalized understanding.
== END 2023-03-22 08:48 | disposition home or self-care (01) ==
PROVIDERS: Physician Assistant; Emergency Provider Emergency Medicine; PCP Pediatrics
DX: N39.0 Urinary tract infection, site not specified (principal); K52.9 Noninfective gastroenteritis and colitis, unspecified; R10.10 Upper abdominal pain, unspecified; Z20.822 Contact with and (suspected) exposure to COVID-19; F12.90 Cannabis use, unspecified, uncomplicated; Z79.899 Other long term (current) drug therapy
CPT/HCPCS: 0241U; 36415; 80053; 80307; 81001; 81025; 83690; 83735; 84484; 84702; 85025; 87086; 93005; 96361; 96374; 99284; 99285; J2405

== ENCOUNTER 2023-08-30 13:18 | Emergency (ER) | payer SELFPAY ==
[2023-08-30 13:29] VITALS: BP 119/75; PULSE 70; RESP 16; TEMP 37; O2SAT 99; BMI 23.6
--- NOTE | 2023-08-30 13:29 | ED.GENADULT ---
HPI - General Adult General Chief complaint: Nausea/Vomiting/Diarrhea Stated complaint: fever Source: patient Mode of arrival: ambulatory Limitations: no limitations History of Present Illness HPI narrative: Patient is a 28 year old assigned female at with no reported medical history presenting to the emergency department today with a headache, fever, and vomiting. Patient states that since last night she has had a headache, a fever, and one episode of vomiting. Patient denies any dizziness, lightheadedness, abdominal pain, nausea, chills, blurry vision, double vision, loss of vision, chest pain, difficulty breathing, shortness of breath, back pain, night sweats, pain with urination, increased urinary frequency, increased urinary urgency, blood in her urine or stool, syncope or a near syncopal episode, recent trauma or falls, bowel incontinence, bladder incontinence, bowel retention, bladder retention, or any other complaints at this time. Onset (ago): day(s) (1) Severity: mild Severity scale (1-10): 2 Relieving factors: none Exacerbating factors: none Associated symptoms: fever/chills and nausea/vomiting Treatments prior to arrival: none Related Data Previous Rx's Medication Instructions Recorded metronidazole 500 mg tablet 2,000 mg (4 x 500 mg) PO ONCE 1 12/10/20 (Flagyl) day #4 tabs vitamin with calcium 1 tab PO DAILY #30 tabs 12/19/20 no.72-iron 27 mg-folic acid 1 mg tablet ( Vitamins Plus Low Iron) cefuroxime axetil 250 mg tablet 250 mg PO BID 7 days #14 tabs 03/22/23 ondansetron 4 mg disintegrating 4 mg PO Q8H PRN nausea and 03/22/23 tablet vomiting #10 tabs Allergies Allergy/AdvReac Type Severity Reaction Status Date / Time No Known Allergies Allergy Verified 08/30/23 13:29 Review of Systems Constitutional: Constitutional: Reports no additional constitutional complaints, Denies chills, Reports fever(s), Reports headache(s) and Denies night sweats Eyes: Eyes: Reports no additional eye complaints, Denies blurry vision, Denies change in vision, Denies diplopia, Denies eye discharge, Denies loss of vision and Denies eye pain ENT: Denies dizziness and Reports headache(s) Cardiovascular: Cardiovascular: Reports no additional cardiovascular complaints, Denies chest pain, Denies lightheadedness, Denies Loss of Consciousness and Denies dyspnea Respiratory: Respiratory: Reports no additional respiratory complaints and Denies dyspnea Gastrointestinal: Gastrointestinal: Reports no additional gastrointestinal complaints, Denies abdominal pain, Denies melena, Denies hematochezia, Denies change in bowel habits, Denies change in stool character and Reports vomiting Genitourinary: Genitourinary: Denies hematuria, Denies urinary frequency, Denies dysuria, Denies urinary incontinence, Denies urinary hesitancy and Denies urinary urgency Musculoskeletal: Musculoskeletal: Reports no additional musculoskeletal complaints, Denies numbness and Denies tingling Neurologic: Denies dizziness, Reports headache(s), Denies loss of vision, Denies numbness and Denies tingling Psychiatric: Psychiatric: Reports no additional psychiatric complaints Endocrine: Endocrine: Reports no additional endocrine complaints Hematologic/Lymphatic: Hematologic/Lymphatic: Reports no additional hematologic/lymphatic complaints Allergic/Immunologic: Allergic/Immunologic: Reports no additional allergic/immunologic complaints PMFSH Past Medical History Attestation statement: The following information was validated with the patient. Source: old records reviewed and nursing notes reviewed Medical History Elevated testosterone level in female Irregular menses Surgical History H/O inguinal hernia repair History of lumpectomy of right breast Social History Social History Alcohol intake: current Alcohol intake frequency: holidays/special occasions only Substance Use Type: Marijuana Advance Directives: No Sexual orientation: Straight/Heterosexual Physical Exam ED Vital Signs: Vital Signs - 24 hr 08/30/23 13:29 Temperature 98.6 F Pulse Rate 70 Respiratory Rate 16 Blood Pressure 119/75 Pulse Oximetry 99 Oxygen Delivery Method Room Air BMI result Body Mass Index 23.6 Const General: cooperative, no acute distress, alert and awake Nutritional Appearance: well nourished Orientation/consciousness: patient oriented x3 Limitations: no limitations HENMT Head: Yes normal to inspection and Yes atraumatic Ears: hearing grossly normal bilaterally and external ears normal General nose exam: Normal external nose present, no nasal discharge noted and no epistaxis Face and sinus: Yes normal facial exam, No abrasion and No laceration Mouth: Normal oral and palatal mucosa present, no drooling and no muffled voice Eyes General: appearance normal, both eyes and all related structures Periorbital: periorbital findings normal Eyelids: Yes eyelids normal Conjunctivae: conjunctivae normal Pupils: Equal, round and reactive pupils present EOM: EOMs intact bilaterally Neck Neck: Yes normal visual inspection, Yes full ROM and Yes no lymphadenopathy Chest Chest palpation & inspection: normal inspection of the chest Resp Effort & Inspection: normal respiratory effort and able to speak in complete sentences GI Inspection: Yes normal to inspection Neuro General: patient oriented x3 and moves all extremities Cranial nerves: Yes Equal, round and reactive pupils present Cognition (Neuro): normal cognition Motor exam (neuro): 5/5 motor strength present throughout Sensory Exam: Normal double simultaneous stimulation for sensation Coordination: [id number] test normal Extrem General: Yes normal to inspection, Yes full ROM and Yes capillary refill normal Psych Appearance: grossly normal Mental Status: mental status grossly normal Affect: normal affect Attitude: cooperative Thought process: Normal thought process present Thought content: Normal thought content present Insight: Good insight present (Psych) Course Course Course Narrative: RME performed by Kaia Wyatt PA-C. Patient is a 28 year old assigned female at presenting to the emergency department with a fever. Swabs ordered. Patient placed back in the waiting room pending room availability and results. Medical Decision Making Medical Decision Making [facility] Narrative: Patient is a 28 year old assigned female at with no reported medical history presenting to the emergency department today with a headache, fever, and 1 episode of vomiting. Patient's limited physical exam performed in triage was unremarkable. Patient left the department without completing treatment. Patient left the department before myself or any of the other emergency department clinicians could explain or review physical exam findings, need or lack there of for further testing, treatment options, or any treatment plans. Differential Diagnosis Differential Diagnoses: The differential diagnosis associated with the presentation includes URI COVID-19 Influenza RSV Discharge Plan Discharge Clinical Impression: Headache Patient Disposition: Left W/O Completing Treatment Prescriptions: No Action metronidazole [Flagyl] 500 mg tablet 2,000 mg PO ONCE 1 Days Qty: 4 0RF cefuroxime axetil 250 mg tablet 250 mg PO BID 7 Days Qty: 14 0RF ondansetron 4 mg tablet,disintegrating 4 mg PO Q8H PRN (Reason: nausea and vomiting) Qty: 10 0RF Vitamin Plus Low Iron 27 mg iron- 1 mg tablet 1 tab PO DAILY Qty: 30 11RF Discharge Date/Time: 08/30/23 19:15
== END 2023-08-30 19:15 | disposition left against medical advice (07) ==
PROVIDERS: Emergency Provider Emergency Medicine; PCP Pediatrics
DX: R51.9 Headache, unspecified (principal); R11.2 Nausea with vomiting, unspecified; R50.9 Fever, unspecified
CPT/HCPCS: 99281

== ENCOUNTER → 2025-02-27 15:07 | Outpatient (BNVA) | payer OTHER, SELFPAY | PROVIDERS: PCP Pediatrics; Visit Provider Registered Nurse | DX: Z77.21 Contact with and (suspected) exposure to potentially hazardous body fluids (principal); Z02.79 Encounter for issue of other medical certificate | CPT/HCPCS: 84450; 84460; 86706; 86803; 87389; 99202 ==